=== PATIENT | female | born 1925 | race Caucasian/White ===

== ENCOUNTER 2016-04-17 09:50 | Inpatient (IN) | payer MEDICARE, OTHER ==
--- NOTE | ~2016-04-17 | DS ---
Discharge Summary [facility] [address] [place]. [address] NAME: FREDO CASTANO : [birth year] STATUS : DIS IN PAT#: [id number] AGE: 89 ADM/REG DATE : 04/17/16 MR#: [id number] REPORT SERV DATE: 04/27/16 DICTATED BY: ADRIÁN PETER DATE: 04/26/16 REPORT STATUS : Draft TRANSCRIBED BY: NAIMA DATE: 04/26/16 Data Collection from hospitalization DISCHARGE DIAGNOSES: 1. Left hip displaced femoral neck fracture. 2. Hypertension. 3. Hypothyroidism. 4. Glaucoma. 5. Cataracts. 6. Osteoarthritis. 7. History of ovarian cancer. 8. History of right renal cell cancer. 9. History of renal artery stenosis. 10.History of melanoma. CONSULTATIONS: Micheal Middleton M.D. PROCEDURES PERFORMED: Left hip hemiarthroplasty, 04/17/2016. PATHOLOGY: Femoral head with medullary hemorrhage (history of fracture), left hip. DISCHARGE MEDICATIONS: Norvasc 10 mg at bedtime, Eliquis 2.5 mg twice a day, Colace 100 mg twice a day, ferrous sulfate 300 mg with breakfast and supper, Lumigan 1 drop at bedtime, Synthroid 75 mcg before breakfast, Theragran tablets one tablet with breakfast, Lopressor 25 mg twice a day, AcipHex 20 mg daily, Diovan 320 mg daily, Tylenol 650 mg every four hours as needed, Mylanta 30 mL as needed, Dulcolax 15 mg as needed, Madison 5/325 one tablet every four hours as needed, milk of magnesia 30 mL as needed, MiraLAX powder one packet twice a day as needed, Catapres 0.05 mg daily as needed, and timolol one drop daily as instructed. CONDITION AT DISCHARGE: Stable. DISPOSITION: The patient was discharged to [facility] on a regular diet with activities as instructed. HOSPITAL COURSE: This is an 89-year-old female who suffered a same level fall and was brought to the [facility] Emergency Room where she was found to have a left displaced femoral neck fracture. She was otherwise medically stable. X-rays had revealed left displaced femoral neck fracture. Treatment options were discussed, and it was elected to proceed with surgical intervention. She was admitted to the hospital at this time for further evaluation and treatment. Upon admission, she was taken to the operating room where she underwent the above-mentioned procedure. She tolerated this well. There were no complications. On postop day #1, she was seen by Dr. Micheal Middleton. The patient says she has had no associated symptoms such as dizziness prior to her fall. Oxycodone was changed to hydrocodone. The patient does desire to go home with rehab. SERGIO hose remained in place. The patient was currently on apixaban. Blood pressure is under better control. Her current medication regimen with amlodipine, metoprolol, and valsartan was continued. Levothyroxine replacement was continued as Discharge Summary [id number] [facility] [place]. [address] NAME: FREDO CASTANO : [birth year] STATUS : DIS IN PAT#: [id number] AGE: 89 ADM/REG DATE : 04/17/16 MR#: [id number] REPORT SERV DATE: 04/27/16 DICTATED BY: ADRIÁN PETER DATE: 04/26/16 REPORT STATUS : Draft TRANSCRIBED BY: NAIMA DATE: 04/26/16 scheduled. Protonix was being provided for GI prophylaxis. Her current iron supplement was continued. O2 was going to be weaned. She was going to begin physical therapy. On postop day #2, she continued to do well. She was up sitting in a bedside chair. Iron supplement continued. Blood pressure was still a bit elevated. She was placed on a cardiac diet. Discharge planning was performed. On 04/20/2016, she denied any complaints at this time. She was alert and cooperative. H and H remained stable. Discharge instructions were given. Due to her improved and stable condition, she was discharged to [facility] with the above-stated instructions. Information collected by: Vonda Lewis I submit the above information as my discharge summary. ANGELA/NAIMA Adrián Peter M.D. / [id number] CC: Max Dominguez M.D. Randy Heisser, M.D. [facility]
--- NOTE | ~2016-04-17 | HP ---
History And Physical [place] [address] [facility] [place]. [address] NAME: FREDO CASTANO : [birth year] STATUS : ADM IN PAT#: [id number] AGE: 89 ADM/REG DATE : 04/17/16 MR#: [id number] REPORT SERV DATE: 04/18/16 DICTATED BY: NGUYEN BELL DATE: 04/18/16 REPORT STATUS : Draft TRANSCRIBED BY: MODL DATE: 04/18/16 DATE OF ADMISSION: 04/17/2016 Dictated by Charisma Marie, nurse practitioner. CHIEF COMPLAINT: Left hip pain, status post fall. HISTORY OF PRESENT ILLNESS: The patient is an 89 years old female, who is transferred from home to [facility] Emergency Room with complaint of left hip and left upper leg pain, status post fall. Patient with a history of hypertension and hypothyroidism. The patient denied any associated symptoms such as dizziness prior to the fall. The patient was evaluated and seen by Orthopedic, Dr. Triston Carpenter, who had performed her left hip hemiarthroplasty for left femur neck fracture with displacement. The patient reports has not taken any pain medicine today. She desired to go home and continue physical therapy. PAST MEDICAL HISTORY: To include hypertension, hypothyroidism, bilateral glaucoma/cataracts, osteoarthritis, history of ovarian cancer status post hysterectomy, as well as history of right renal cell cancer, history of renal artery stenosis, and history of melanoma. PAST SURGICAL HISTORY: Total hysterectomy in 1998 and cholecystectomy approximately two years ago and recent left hip hemiarthroplasty on 04/17/[address] Triston Carpenter. SOCIAL HISTORY: The patient is a . Her son lives with her. She denies any alcohol, tobacco, or illicit drug use. The patient reports she has two sons, her oldest at the age of 7070 years old and her current son who is living with her is 78 years old. The patient reports she has a very supportive neighbor, who is a retired nurse, who would assist her in her home care. The patient reports her had in 1987. FAMILY HISTORY: The patient reports a sister having diabetes. ALLERGIES: THE PATIENT WITH HISTORY OF ALLERGIC TO CODEINE "CAUSES HER TO BE DEATHLY SICK," ASPARTAME, AND STEROID. MEDICATIONS: Currently on: 1. Amlodipine. 2. Apixaban 2.5 mg b.i.d. 3. Colace 100 mg b.i.d. 4. Famotidine 20 mg b.i.d. 5. Ferrous sulfate 300 mg with breakfast. 6. Levothyroxine 75 mcg q.a.c. 7. Metoprolol tartrate 25 mg b.i.d. 8. Pantoprazole 40 mg p.o. a.c. 9. Valsartan 320 mg p.o. daily. 10.Timolol 0.5% ophthalmic daily. History And Physical [address] [place]. [address] NAME: FREDO CASTANO : [birth year] STATUS : ADM IN PAT#: [id number] AGE: 89 ADM/REG DATE : 04/17/16 MR#: [id number] REPORT SERV DATE: 04/18/16 DICTATED BY: NGUYEN BELL DATE: 04/18/16 REPORT STATUS : Draft TRANSCRIBED BY: NAIMA DATE: 04/18/16 11.Multivitamins without minerals one tab with breakfast. 12.Latanoprost ophthalmic q.h.s. CODE STATUS: The patient desires no intubation or mechanical ventilation. Otherwise, does desire chest compression, pressor, shock or any antiarrhythmia, IV or any p.o. antibiotic, and blood transfusion if needed. VITAL SIGNS: 99.2, heart rate 85, respiratory rate 18, BP 129/60, saturation O2 of 95% at 2 L/minute via nasal cannula. IMAGING: X-ray of the hip on 04/17/2016 revealed displaced and angulated left femoral neck fracture with approximately 30 degrees of varus angulate with 1 cm of displacement. REVIEW OF SYSTEMS: The patient denies any complaint of headache or dizziness. The patient denies any complaint of shortness of breath or chest pain. The patient denies any complaint of swallowing difficulty. The patient denies any nausea, vomiting, or abdominal pain. Does report having had issue with use of codeine in the past "causes her to be deathly sick" and does not want any codeine for pain medicine. The patient did report she has not had any pain medicine today. The patient reports having history of arthritis, but denies any pain. She reports left hip pain only with some movement, but has not had any pain medicine since yesterday. The patient wishes to go home with home health rehab. The patient's son at bedside and reports not sure if rehab had seen the patient. The patient reports she has been walking without any device at home until her recent fall. The patient reports she quit driving in 2012. ASSESSMENT: 1. Left hip pain status post fall with recent left hip hemiarthroplasty. 2. Left hip fracture status post fall. 3. Hypertension, controlled. 4. Hypothyroidism. 5. Gastroesophageal reflux disease. 6. Anemia, likely secondary to recent surgery. 7. Osteoarthritis of hands and feet. PLAN: 1. The patient underwent left hip hemiarthroplasty on 04/17/[address] Triston Carpenter. Will continue pain management. Change oxycodone to hydrocodone given the patient's and son's concern about codeine causing severe nausea and vomiting. Both agreed to use hydrocodone. Pending rehab. The patient does desire rehab, but does desire to go home with rehab. We will defer this to Case Management about the patient's wishes. Place the patient on fall precaution. Continue current SERGIO hose. The patient currently on apixaban 2.5 mg p.o. b.i.d. per Orthopedic. The patient is at risk for DVT formation. 2. We will closely monitor BP. The patient's BP is a better controlled. Continue current med regimen with amlodipine, metoprolol, and valsartan. The patient is at risk for CVA. 3. We will continue current levothyroxine replacement as scheduled. History And Physical [address] [address] NAME: FREDO CASTANO : [birth year] STATUS : ADM IN [facility]#: [id number] AGE: 89 ADM/REG DATE : 04/17/16 MR#: [id number] REPORT SERV DATE: 04/18/16 DICTATED BY: NGUYEN BELL DATE: 04/18/16 REPORT STATUS : Draft TRANSCRIBED BY: MODL DATE: 04/18/16 4. We will continue current GI prophylaxis with Protonix. Orthopedic had discontinued Pepcid today. 5. We will continue current iron supplement. The patient with good H and H, but had decreased likely secondary to postop blood loss. We will continue to monitor H and H. The patient is at risk for further hypoxia. The patient currently on nasal cannula O2 at 2 L/minute. We will monitor saturation O2. We will wean O2 further down as tolerated to keep saturation O2 greater than or equal to 90%. 6. Address code status with the patient and son present. The patient does desire everything to be done except no intubation or mechanical ventilation. Son agrees with this plan. POLST form completed and filed in chart. 7. Continue current p.o. diet of regular diet. Monitor renal function. The patient's creatinine on admission was 1.10, this morning is 0.93. BUN is within normal. The patient is at risk for acute kidney injury. RH/MODL Nguyen Bell M.D. / [id number] CC: Rowdy Mena M.D.
--- NOTE | ~2016-04-17 | HP ---
History And Physical [facility] [address] [place]. [address] NAME: FREDO CASTANO : [birth year] STATUS : ADM IN [facility]#: [id number] AGE: 89 ADM/REG DATE : 04/17/16 MR#: [id number] REPORT SERV DATE: 04/17/16 DICTATED BY: ADRIÁN PETER DATE: 04/17/16 REPORT STATUS : Draft TRANSCRIBED BY: MODL DATE: 04/17/16 DATE OF ADMISSION: 04/17/2016 CHIEF COMPLAINT: Left hip pain. HISTORY OF PRESENT ILLNESS: This pleasant 89-year-old female suffered a same level fall, was brought to the [facility] Emergency Room, where she was noted to have a left displaced femoral neck fracture. She was otherwise medically stable. I was subsequently consulted. PAST MEDICAL HISTORY: Significant for hypertension, hypothyroidism. PAST SURGICAL HISTORY: Includes a hysterectomy, as well as a cholecystectomy. She tolerated both procedures and anesthetic well. ALLERGIES: CODEINE CAUSES NAUSEA AND VOMITING AND ASPARTAME. CURRENT MEDICATIONS: Include amlodipine, Lumigan, Synthroid, AcipHex, potassium, Timolol, Diovan. FAMILY HISTORY: Noncontributory to this. SOCIAL HISTORY: No alcohol, tobacco, or illicits. She lives comfortably and is a community ambulator with her . She does not drive anymore since 2012 at her own will. REVIEW OF SYSTEMS: No headache, chest pain, nausea, vomiting, shortness of breath, or other constitutional symptoms per full 14-point systematic review. PHYSICAL EXAMINATION: GENERAL: On exam, I see a lady, looks stated age. A and O x3. Pleasant, cooperative, and generally, in no apparent distress. We had a pleasant conversation which she asks and answers appropriate questions. HEENT: Pupils equally round, react to light, and accommodation. Extraocular muscles intact. CHEST: Clear to auscultation bilaterally. HEART: Regular rate and rhythm. ABDOMEN: Soft, nontender, nondistended. Bowel sounds are present. EXTREMITIES: Bilateral upper extremities and right lower extremity show full active and passive range of motion. Good distal pulses. No peripheral edema. Good skin, no skin breaks, and good distal pulses. About the left lower extremity, it is externally rotated and shortened, although she has good distal pulses. No peripheral edema. Good sensation, and she is able to flex and extend her toes. She does have pain at her left groin with log roll. RADIOGRAPHS: Reveal a left displaced femoral neck fracture. PLAN: Plan will be for a left hemiarthroplasty. I have discussed the risks and benefits of History And Physical [place] [id number] [place] [address] NAME: FREDO CASTANO : [birth year] STATUS : ADM IN [facility]#: [id number] AGE: 89 ADM/REG DATE : 04/17/16 MR#: [id number] REPORT SERV DATE: 04/17/16 DICTATED BY: ADRIÁN PETER DATE: 04/17/16 REPORT STATUS : Draft TRANSCRIBED BY: NAIMA DATE: 04/17/16 surgery versus conservative treatment with the patient at length. She verbalized understanding and wished to proceed. CYNTHIA/NAIMA Adrián Peter M.D. / [id number] CC: Max Dominguez M.D.
--- NOTE | ~2016-04-17 | OP ---
Record Of Operation [facility] [address] [place]. [address] NAME: FREDO CASTANO : [birth year] STATUS : ADM IN PAT#: [id number] AGE: 89 ADM/REG DATE : 04/17/16 MR#: [id number] REPORT SERV DATE: 04/17/16 DICTATED BY: ADRIÁN PETER DATE: 04/17/16 REPORT STATUS : Draft TRANSCRIBED BY: MODL DATE: 04/17/16 DATE OF PROCEDURE: 04/17/2016 PREOPERATIVE DIAGNOSIS: Left hip displaced femoral neck fracture. POSTOPERATIVE DIAGNOSIS: Left hip displaced femoral neck fracture. PROCEDURE: Left hip hemiarthroplasty. IMPLANTS: [employer] size 10 synergy stem with a 45 +0 monopolar cobalt chrome head ball. COMPLICATIONS: None. SPECIMENS: Femoral head. ESTIMATED BLOOD LOSS: Less than 50 mL COUNTS RECORDED CORRECT: Yes. ANESTHESIA: Spinal. CONDITION ON LEAVING OR: Stable to recovery room with good distal pulses noted. INDICATIONS FOR PROCEDURE: I gave the operative risks and benefits of surgical indications versus nonsurgical management, including but not limited to , myocardial infarction, pulmonary embolism, stroke, deep venous thrombosis, damage to nerves, damage to vessels, damage to other soft tissues, painful scar, unsightly scar, hardware wear, hardware breakage, periprosthetic fracture, dislocation, and leg length inequality. Possible need for revision surgery that could include further arthroplasty, arthrodesis, or amputation. We also discussed bleeding and infection. The patient verbalized understanding of these risks and wished to proceed to the operating room. PROCEDURE IN DETAIL: After the patient was identified in the preoperative holding area, all risks and benefits again were discussed with the patient. All questions answered satisfactorily. The patient wished to proceed with surgery. Correct side and site was identified, marked by me. We then proceeded to the operating room, where the patient was placed under general endotracheal anesthesia, supine on the regular OR bed. A [place] catheter was placed. The patient was transferred to the lateral decubitus position with the operative hip up. Prepped and draped in sterile fashion. Correct antibiotics and time-out procedure observed by all in the room. We then began with a 10 cm standard posterolateral incision carried sharply down through the tissues and the fascia dominique was incised in line with the incision. Bovie cautery was utilized to gain hemostasis. The gluteus max fibers were split in line with their orientation giving good visualization of the posterolateral aspect of the hip. The piriformis was identified and taken down in its insertion as well as the remainder of the short external rotators in the posterior capsule. This was tagged and Record Of Operation [facility] [address] [place]. [address] NAME: FREDO CASTANO : [birth year] STATUS : ADM IN PAT#: [id number] AGE: 89 ADM/REG DATE : 04/17/16 MR#: [id number] REPORT SERV DATE: 04/17/16 DICTATED BY: ADRIÁN PETER DATE: 04/17/16 REPORT STATUS : Draft TRANSCRIBED BY: MODL DATE: 04/17/16 brought posterior to protect the sciatic nerve which had been identified prior to the previous stab. With that, the distal femur was easily dislocated leaving the remainder of the head ball in the bony acetabulum. This was subsequently removed noting good articular cartilage at the femoral head, as well as the bony acetabulum. We elected to choose a hemiarthroplasty at this time for its decreased dislocation rate. With that, we copiously irrigated the bony acetabulum placed a proximal femoral elevator freshened a neck cut and began broaching and reaming for the AML stem. Once the size was settled upon, it was trialed noting to recreate her leg lengths and offset. With that, we extracted the trial components impacted our final AML stem in approximately 15 degrees of anteversion to match the patient's [place] river version, placed the final head ball on a clean dry Gates taper. After trials, again settling on a -3 neck with final implants in, she was reduced noting good suction fit within the bony acetabulum noting good recreation of soft tissue repair, coming to full extension and external rotation without impingement. There was no excessive tension on the sciatic nerve. Leg lengths were clinically equal on the table and the patient was able to flex to 90 degrees slight adduct and internally rotate to 75 degrees before beginning to sublux this head ball out of the bony acetabulum. With that, we felt the patient was stable. We copiously irrigated all of the soft tissues, closed the posterior capsule and short external rotators with #1 Ethibond through bone tunnels, followed by two Quill in the fascia dominique, followed by skin adore and 2-0 Vicryl in the skin, followed by Monocryl and Steri-Strips. The patient was awakened and transferred to the recovery room in stable condition. CYNTHIA/NAIMA Adrián Peter M.D. / [id number] CC: Max Dominguez M.D.
[2016-04-17 09:34] LABS: BASOPHILS 0.2 %; BASOPHILS ABSOLUTE 0.03 10/3/uL (0.0-0.16); EOSINOPHILS 1.5 %; IMMATURE GRANULOCYTES 0.4 %; IMMATURE GRANULOCYTES ABSOLUTE 0.06 10/3/uL (0.0-0.11); LYMPHOCYTES 12.8 %; LYMPHOCYTES ABSOLUTE 1.71 10/3/uL (0.67-4.30); MEAN PLATELET VOLUME 9.9 fL (9.2-13.0); MONOCYTES 5.4 %; MONOCYTES ABSOLUTE 0.72 10/3/uL (0.21-1.20); NEUTROPHILS 79.7 %; NEUTROPHILS ABSOLUTE 10.69 10/3/uL (2.02-8.40); PLATELET COUNT 275 10/3/uL (150-400); RBC DISTRIBUTION WIDTH 12.7 % (12.0-16.0); RED CELL COUNT 4.26 10/6/uL (4.0-5.6); WHITE BLOOD CELLS 13.4 10/3/uL (4.5-10.5)
[2016-04-17 09:35] LABS: HEMATOCRIT 40.6 % (36.0-48.0); HEMOGLOBIN 14.6 g/dL (12.0-16.0); MANUAL DIFF NO %; MEAN CORPUSCULAR HEMOGLOB 34.3 pg (26.0-34.0); MEAN CORPUSCULAR VOLUME 95.3 fL (80-100)
[2016-04-17 09:42] LABS: INTERNATIONAL NORMAL RATI 1.1 UNITS (-); PROTIME (NOT ORD) 14.3 SEC (12.0-14.5)
[2016-04-17 09:46] LABS: CHLORIDE, SERUM 100 MMOL/L (96-112); CO2 (CARBON DIOXIDE) 27 MMOL/L (24-34); GFR AFRICAN AMERICAN 52 ML/MIN (>=60); GFR NON AFRICAN AMERICAN 44 ML/MIN (>=60); SODIUM, SERUM 136 MMOL/L (135-148)
[2016-04-17 09:47] LABS: BUN (BLOOD UREA NITROGEN) 11 MG/DL (6-23); GLUCOSE, SERUM 129 MG/DL (60-99); POTASSIUM, SERUM 4.2 MMOL/L (3.5-5.3)
[~2016-04-17 09:50] MED LIST: ACIPHEX PO; ASAB PO; BETIMOL0.5 % OPH; DIOVAN320 MG PO; KLOR-CON M2020 MEQ PO; LEVOTHYROXIN75 MCG PO; LORTAB; LUMIGAN2.5 ML OPH; MAGOX4; NORV10 PO; POTASSIUM OTC PO; PRIN10 PO; ZOCOR20 PO
[2016-04-17] MEDS ORDERED: SYN075 PO (11:19)
[2016-04-17] MEDS ORDERED: DIOVAN320 MG PO (11:19)
[2016-04-17] MEDS ORDERED: LUMIGAN2.5 ML OPH (11:20)
[2016-04-17] MEDS ORDERED: [UNRECOGNIZED DRUG - OTHER] PO (11:20)
[2016-04-17] MEDS ORDERED: ACIPHEX PO (11:20)
[2016-04-17] MEDS ORDERED: MULTIVITAMIN PO (11:20)
[2016-04-17] MEDS ORDERED: NORV10 PO (11:21)
[2016-04-17] MEDS ORDERED: POTASSIUM 99MG PO (11:21)
[2016-04-17] MEDS ORDERED: LOP25 PO (11:21)
[2016-04-17] MEDS ORDERED: TIMOLOL MAL0.5 % OPH (11:22)
[2016-04-18 05:38] LABS: BASOPHILS 0.2 %; BASOPHILS ABSOLUTE 0.03 10/3/uL (0.0-0.16); EOSINOPHILS 1.2 %; EOSINOPHILS ABSOLUTE 0.14 10/3/uL (0.0-0.53); IMMATURE GRANULOCYTES 0.2 %; IMMATURE GRANULOCYTES ABSOLUTE 0.02 10/3/uL (0.0-0.11); LYMPHOCYTES 9.8 %; LYMPHOCYTES ABSOLUTE 1.18 10/3/uL (0.67-4.30); MEAN CORPUS HGB CONC 34.5 g/dL (32.0-36.0); MEAN CORPUSCULAR HEMOGLOB 32.8 pg (26.0-34.0); MEAN CORPUSCULAR VOLUME 95.1 fL (80-100); MEAN PLATELET VOLUME 9.8 fL (9.2-13.0); MONOCYTES 8.9 %; MONOCYTES ABSOLUTE 1.07 10/3/uL (0.21-1.20); NEUTROPHILS 79.7 %; NEUTROPHILS ABSOLUTE 9.64 10/3/uL (2.02-8.40); PLATELET COUNT 224 10/3/uL (150-400); RBC DISTRIBUTION WIDTH 12.8 % (12.0-16.0); RED CELL COUNT 3.45 10/6/uL (4.0-5.6); WHITE BLOOD CELLS 12.1 10/3/uL (4.5-10.5)
[2016-04-18 05:46] LABS: HEMATOCRIT 32.8 % (36.0-48.0); HEMOGLOBIN 11.3 g/dL (12.0-16.0); MANUAL DIFF NO %
[2016-04-18 06:14] LABS: BUN (BLOOD UREA NITROGEN) 10 MG/DL (6-23); CALCIUM, SERUM 8.5 MG/DL (8.5-10.4); CHLORIDE, SERUM 100 MMOL/L (96-112); CO2 (CARBON DIOXIDE) 28 MMOL/L (24-34); CREATININE 0.93 MG/DL (0.55-1.02); GFR AFRICAN AMERICAN 63 ML/MIN (>=60); GFR NON AFRICAN AMERICAN 54 ML/MIN (>=60); GLUCOSE, SERUM 122 MG/DL (60-99); POTASSIUM, SERUM 3.6 MMOL/L (3.5-5.3); SODIUM, SERUM 136 MMOL/L (135-148)
[2016-04-18] MEDS ORDERED: CAT1 PO (09:54)
[2016-04-19 05:20] LABS: HEMATOCRIT 30.9 % (36.0-48.0); HEMOGLOBIN 11.1 g/dL (12.0-16.0); MEAN CORPUS HGB CONC 35.9 g/dL (32.0-36.0); MEAN CORPUSCULAR HEMOGLOB 33.9 pg (26.0-34.0); MEAN CORPUSCULAR VOLUME 94.5 fL (80-100); MEAN PLATELET VOLUME 10.1 fL (9.2-13.0); PLATELET COUNT 217 10/3/uL (150-400); RBC DISTRIBUTION WIDTH 12.6 % (12.0-16.0); RED CELL COUNT 3.27 10/6/uL (4.0-5.6); WHITE BLOOD CELLS 12.6 10/3/uL (4.5-10.5)
[2016-04-19 05:23] LABS: MANUAL DIFF YES %
[2016-04-19 05:52] LABS: BAND NEUTROPHILS 2 %; LYMPHOCYTES 15 %; LYMPHOCYTES ABSOLUTE (CALC) 1.89 10/3/uL (0.67-4.30); MONOCYTES 8 %; MONOCYTES ABSOLUTE (CALC) 1.01 10/3/uL (0.21-1.20); SEGMENTED NEUTROPHIL (0) 75 %; TOTAL NUCLEATED CELLS 100
[2016-04-19 05:53] LABS: PLATELET ESTIMATE ADQ (ADEQUATE)
[2016-04-19 05:54] LABS: RBC MORPHOLOGY NORM (NORMAL)
[2016-04-20 04:23] LABS: BASOPHILS 0.2 %; BASOPHILS ABSOLUTE 0.02 10/3/uL (0.0-0.16); EOSINOPHILS 1.8 %; EOSINOPHILS ABSOLUTE 0.22 10/3/uL (0.0-0.53); HEMATOCRIT 31.7 % (36.0-48.0); HEMOGLOBIN 11.3 g/dL (12.0-16.0); IMMATURE GRANULOCYTES 0.4 %; IMMATURE GRANULOCYTES ABSOLUTE 0.05 10/3/uL (0.0-0.11); LYMPHOCYTES 15.3 %; LYMPHOCYTES ABSOLUTE 1.89 10/3/uL (0.67-4.30); MEAN CORPUS HGB CONC 35.6 g/dL (32.0-36.0); MEAN CORPUSCULAR HEMOGLOB 33.2 pg (26.0-34.0); MEAN CORPUSCULAR VOLUME 93.2 fL (80-100); MEAN PLATELET VOLUME 9.9 fL (9.2-13.0); MONOCYTES 11.7 %; MONOCYTES ABSOLUTE 1.44 10/3/uL (0.21-1.20); NEUTROPHILS 70.6 %; NEUTROPHILS ABSOLUTE 8.74 10/3/uL (2.02-8.40); PLATELET COUNT 204 10/3/uL (150-400); RBC DISTRIBUTION WIDTH 12.5 % (12.0-16.0); WHITE BLOOD CELLS 12.4 10/3/uL (4.5-10.5)
[2016-04-20 04:24] LABS: MANUAL DIFF NO %
== END 2016-04-20 13:14 | DRG 470 ==
LOC: ER 09:50 → 3SO 17:00
PROVIDERS: Hospitalist; Orthopaedic Surgery
PROC: 0SRB02Z Replacement of Left Hip Joint with Metal on Polyethylene Synthetic Substitute, Open Approach (ICD-10-PCS; principal; 2016-04-17 14:30)
DX: S72.002A Fracture of unspecified part of neck of left femur, initial encounter for closed fracture (principal); D64.9 Anemia, unspecified; I10 Essential (primary) hypertension; D62 Acute posthemorrhagic anemia; W18.30XA Fall on same level, unspecified, initial encounter; E03.9 Hypothyroidism, unspecified; K21.9 Gastro-esophageal reflux disease without esophagitis
CPT/HCPCS: 36415; 71010; 72170; 73552-LT; 80048; 85025; 85610; 85730; 86850; 86900; 86901; 87641; 88305; 88311; 93005; 96374; 97110-GP; 97116-GP; 97161-GP; 97166-GO; 97535-GO; 99285; A9270-GY; C1776; G8978-CK-GP; G8979-CI-GP; J0690; J1885; J2274; J2405; J2795; J3010; J3370